=== PATIENT | female | born 1995 | race Two or more races ===

== ENCOUNTER 2024-06-15 09:30 | Emergency (ER) | payer MEDICAID ==
[~2024-06-15] VITALS: Ht 149.9 cm; Wt 56.2 kg
[2024-06-15 09:52] VITALS: BP 146/96; PULSE 96; RESP 16; TEMP 98.6; O2SAT 96
--- NOTE | 2024-06-15 10:29 | ED.PDOC ---
HPI Comments A 29 YEAR OLD FEMALE PRESENTS TO THE ED WITH COMPLAINT OF DOG BITE. PATIENT REPORTS THAT SHE WAS GRABBING HER BOYFRIEND'S SPANISH BULLDOG TO TAKE HIM TO THE VET TODAY WHEN ALL OF A SUDDEN, THE DOG TURNED AROUND AND BIT HER ON THE LEFT FIFTH FINGER, CAUSING A LACERATION. PATIENT RELAYS THAT SHE CONTROLLED THE BLEEDING WITH WRAPPING AND SHE IS STILL ABLE TO MOVE HER FINGER NORMALLY. PATIENT STATES SHE IS UNSURE IF THE DOG IS VACCINATED AND NEITHER IS HER BOYFRIEND SURE. PATIENT DENIES ANY NUMBNESS, WEAKNESS, UNCONTROLLED BLEEDING, OR OTHER COMPLAINTS. NO OTHER SYMPTOMS OR MODIFYING FACTORS AT THIS TIME. Chief Complaint: Animal Bite Time Seen by MD: 10:24 Reviewed Notes: Nurses Notes, Medications, Allergies Home Meds Active Scripts Naproxen (Naproxen) 500 Mg Tab, 500 MG PO BID, #30 TAB Prov:REGINE SINGH 06/15/24 Amoxicillin & Pot Clavulanate (Augmentin) 500 Mg Tab, 1 TAB PO BID, #14 TAB Prov:REGINE SINGH 06/15/24 Information Source: Patient Mode of Arrival: Ambulatory Severity: Moderate Severity of Laceration: Controlled Bleeding Complexity: Intermediate Timing: Hours Prehospital treatment: None Laceration Location: Digit #5 (LEFT) Mechanism: Dog Last Tetanus: > 5 Years, Unknown Laceration Length (cm): 4 Skin Type: Irregular Depth of Injury: SQ Tendon Injury: 0% Capillary Refill: < 3 seconds Tender: Moderate Discharge: Serosanguinous Erythema: Localized to Wound Edges Associated Signs and Symptoms: None Past Medical History PAST MEDICAL HISTORY: Denies Surgical History: Denies all surgeries METER CHANGES RECORDS CLERK History: No Pertinent METER CHANGES RECORDS CLERK History Family History Family History: Reviewed,noncontributory to illness Social History Smoker: Non-Smoker Alcohol: Denies ETOH Use Drugs: Denies Drug Use Lives In: Home Constitutional: denies: chills, diaphoresis, fatigue, fever, malaise, sweats, weakness, others EENTM: denies: blurred vision, double vision, ear bleeding, ear discharge, ear drainage, ear pain, ear ringing, eye pain, eye redness, hearing loss, mouth pain, mouth swelling, nasal discharge, nose bleeding, nose congestion, nose pain, photophobia, tearing, throat pain, throat swelling, voice changes, others Respiratory: denies: cough, hemoptysis, orthopnea, SOB at rest, shortness of breath, SOB with excertion, stridor, wheezing, others Cardiovascular: denies: chest pain, dizzy spells, diaphoresis, Dyspnea on exertion, edema, irregular heart beat, left arm pain, lightheadedness, palpitations, PND, syncope, others Gastrointestinal: denies: abdomen distended, abdominal pain, blood streaked bowels, constipated, diarrhea, dysphagia, difficulty swallowing, hematemesis, melena, nausea, poor appetite, poor fluid intake, rectal bleeding, rectal pain, vomiting, others Genitourinary: denies: abnormal vagina bleeding, burning, dyspareunia, dysuria, flank pain, frequency, hematuria, incontinence, pain, , vagina discharge, urgency, others Neurological: denies: dizziness, fainting, headache, left sided numbness, left sided weakness, numbness, paresthesia, pre-existing deficit, right sided numbness, right sided weakness, seizure, speech problems, tingling, tremors, weakness, others Musculoskeletal: denies: back pain, gout, joint pain, joint swelling, muscle pain, muscle stiffness, neck pain, others Integumetry: reports: laceration (TO TOP OF LEFT FIFTH FINGER); denies: bruises, change in color, change in hair/nails, dryness, lesions, lumps, rash, wounds, others Allergic/Immunocompromised: denies: Difficulty Healing, Frequent Infections, Hives, Itching, others Hematologic/Lymphatic: denies: anemia, blood clots, easy bleeding, easy bruising, swollen glands, others Endocrine: denies: excessive hunger, excessive sweating, excessive thirst, excessive urination, flushing, intolerance to cold, intolerance to heat, unexplained weight gain, unexplained weight loss, others Psychiatric: denies: anxiety, bipolar disorder, depression, hopeless, panic disorder, schizophrenia, sleepless, suicidal, others All Other Systems: Reviewed and Negative Physical Exam General Appearance: No Apparent Distress, Normal HEENT: Normal ENT Inspection, PERRL/EOMI Neck: Full Range of Motion, Non-Tender, Normal, Normal Inspection Respiratory: Chest Non-Tender, Lungs Clear, No Accessory Muscle Use, No Respiratory Distress, Normal Breath Sounds Cardiovascular: No Edema, No JVD, No Murmur, No Gallop, Normal Peripheral Pulses, Regular Rate/Rhythm Breast Exam: Deferred Gastrointestinal: No Organomegaly, Non Tender, No Pulsatile Mass, Normal Bowel Sounds, Soft Genitalia: Deferred Pelvic: Deferred Rectal: Deferred Extremities: No calf tenderness, Normal capillary refill, Normal range of motion, No pedal edema, Tender (WITH LACERATION ON LEFT 5TH PROXIMAL FINGER, NO BONY TENDERNESS AND SWELLING. ) Musculoskeletal : Apperance: Normal Neurologic: Alert, web content executive II-XII nml as Tested, No Motor Deficits, Normal Affect, Normal Mood, No Sensory Deficits Cerebellar Function: Normal Reflexes: Normal Skin: Dry, Lacerations (4CM LACERATION ON LEFT 5TH PROXIMAL FINGER, NO BLEEDING AND FB, NEUROVASCULAR INTACT, NORMAL ROM. ), Normal Color, Warm Peripheral Pulses: 2+ carotid (R), 2+ carotid (L), 2+ Radial (R), 2+ Radial (L) Lymphatic: No Adenopathy Was a procedure done? Was a procedure done?: Yes Sedation Sedation?: No Laceration Repair : Location TOP OF LEFT FIFTH FINGER Length 2 CM Anesthetic: Lidocaine Laceration Repair Prep: Saline, Betadine Laceration Repair Wound Comple: subcut tissue repair Laceration Repair: Number of sutures (8, 4-0 ETHILON SUTURES), SQ, Size (4- 0), Simple, Bacitracin, Gauze Informed consent obtained: No Risks, benefits, and alternati: Yes Images 1 - Differential diagnosis Generic Laceration: Laceration, Other (POST DOG BITE ) X-Ray, Labs, Meds, VS Vital Signs Date Time Temp Pulse Resp B/P (MAP) Pulse Ox O2 Delivery O2 Flow Rate FiO2 06/15/24 09:52 98.6 96 16 146/96 (113) 96 98.6 06/15/24 09:52 96 16 96 Room Air 06/15/24 09:38 98.2 96 20 144/94 (111) 98 Current Medications Medications (Trade) Dose Ordered Sig/Cal Route Start Time Stop Time Status Last Admin Diphtheria/ Tetanus/Acell Pertussis (Boostrix T-Dap) 0.5 ml ONCE ONCE IM 06/15/24 10:45 06/15/24 10:46 DC 06/15/24 10:45 X-Ray, Labs, Meds, VS Comment TREATMENT: TETANUS VACCINE LEFT FIFTH FINGER X RAY: INTERPRETED BY ME. NO ACUTE FINDINGS. NO FRACTURES OR DISLOCATION. PENDING RADIOLOGIST REPORT. Time of 1ST Reevaluation: 11:06 Reevaluation 1ST: Improved Patient Education/Counseling: Diagnosis, Treatment, Need For Follow Up Family Education/Counseling: Diagnosis, Treatment, Need For Follow Up, No Family Present Medical Screening: No EMC Exist At This Time Departure 1 Departure Time of Disposition: 11:06 Impression: Primary Impression: Laceration of left little finger Qualified Codes: S61.217A - Laceration without foreign body of left little finger without damage to nail, initial encounter Additional Impression: Dog bite Qualified Codes: W54.0XXA - Bitten by dog, initial encounter Disposition: HOME / SELF CARE / HOMELESS Condition: Stable Additional Instructions: FOLLOW-UP WITH PCP IN 1 TO 2 DAYS. TAKE MEDICATIONS PRESCRIBED. RETURN TO ED FOR ANY NEW OR WORSENING SYMPTOMS. e-Prescriptions Naproxen (Naproxen) 500 Mg Tab 500 MG PO BID, #30 TAB Prov: REGINE SINGH 06/15/24 Amoxicillin & Pot Clavulanate (Augmentin) 500 Mg Tab 1 TAB PO BID, #14 TAB Prov: REGINE SINGH 06/15/24 Discharged With: Self Critical Care Note Critical Care Time?: No Stability Stability form required: No Heart Score Heart Score: Heart Score Response (Comments) Value History N/A 0 EKG N/A 0 Age N/A 0 Risk Factors N/A 0 Troponin N/A 0 Total 0 I personally scribed for REGINE SINGH ([email or web address]) on 06/15/24 at 10:29. Electronically submitted by David Rice ([email or web address]). I personally scribed for REGINE SINGH ([email or web address]) on 06/15/24 at 10:36. Electronically submitted by David Rice ([email or web address]). I personally scribed for REGINE SINGH ([email or web address]) on 06/15/24 at 10:59. Electronically submitted by David Rice ([email or web address]). REGINE SINGH Jun 15, 2024 10:29
[2024-06-15] MEDS: LIDOCAINE 1% HCL (LOCAL ANESTH.) INJ 20ML MDV IJ ONE (10:33)
[2024-06-15] MEDS: TETANUS-DIPTH-ACEL PERTUSSIS 0.5ML SYR Tdap IM ONE (10:45)
[2024-06-15] MEDS ORDERED: AMOX500T86 PO (11:03)
[2024-06-15] MEDS ORDERED: NAPR-746 PO (11:03)
--- NOTE | 2024-06-15 11:14 | DVH ---
Left 5th digit radiograph CLINICAL INDICATION: LACERATION POST DOG BITE TECHNIQUE: 3 radiographic views of the left 5th digit were obtained. Comparison: None FINDINGS: There is no evidence of acute fracture or dislocation. The visualized joint space is well maintained. The alignment is anatomical. Soft tissues are unremarkable. IMPRESSION: No acute fracture or dislocation. Diffuse soft tissue swelling.
== END 2024-06-15 11:06 | disposition home or self-care (01) ==
LOC: ER 09:30
DX: S61.217A Laceration without foreign body of left little finger without damage to nail, initial encounter (principal); Z79.899 Other long term (current) drug therapy; W54.0XXA Bitten by dog, initial encounter; Y93.89 Activity, other specified; Y92.89 Other specified places as the place of occurrence of the external cause; Y99.8 Other external cause status
CPT/HCPCS: 12002; 73140; 90471; 90715

== ENCOUNTER 2024-06-19 19:19 | Emergency (ER) | payer MEDICAID ==
[~2024-06-19] VITALS: Ht 149.9 cm; Wt 58.0 kg
[~2024-06-19 19:19] MED LIST: AMOX500T86 PO; NAPR-746 PO
[2024-06-19] MEDS ORDERED: CLIN1CAP70 PO (20:57)
--- NOTE | 2024-06-19 20:57 | ED.PDOC ---
History of Present Illness(SKN HPI Comments 29-year-old female complaining of pain and swelling to left hand 5th digit. Patient states she was bit by a dog last week. She was seen at this ER. Had sutures placed in the left hand 5th digit. Says she was started on antibiotics and today when she was cleaning her wound she noticed pus coming out of her wound. Denies any fever or chills. States the finger is painful. Chief Complaint: Wound Check Time Seen by MD: 19:40 History of Present Illness: Nurses Notes Allergies: Coded Allergies: NO KNOWN ALLERGIES (Unverified , 06/19/24) Home Meds Active Scripts Naproxen (Naproxen) 500 Mg Tab, 500 MG PO BID, #30 TAB Prov:REGINE SINGH 06/15/24 Amoxicillin & Pot Clavulanate (Augmentin) 500 Mg Tab, 1 TAB PO BID, #14 TAB Prov:REGINE SINGH 06/15/24 Information Source: Patient Mode of Arrival: Ambulatory Past Medical History PAST MEDICAL HISTORY: Denies Surgical History: Denies all surgeries PARACHUTE CUSHION INSTALLER History: No Pertinent PARACHUTE CUSHION INSTALLER History Family History Family History: Reviewed,noncontributory to illness Social History Smoker: Non-Smoker Alcohol: Denies ETOH Use Drugs: Denies Drug Use Lives In: Home Constitutional: denies: chills, diaphoresis, fatigue, fever, malaise, sweats, weakness, others EENTM: denies: blurred vision, double vision, ear bleeding, ear discharge, ear drainage, ear pain, ear ringing, eye pain, eye redness, hearing loss, mouth pain, mouth swelling, nasal discharge, nose bleeding, nose congestion, nose pain, photophobia, tearing, throat pain, throat swelling, voice changes, others Respiratory: denies: cough, hemoptysis, orthopnea, SOB at rest, shortness of breath, SOB with excertion, stridor, wheezing, others Cardiovascular: denies: chest pain, dizzy spells, diaphoresis, Dyspnea on exertion, edema, irregular heart beat, left arm pain, lightheadedness, palpitations, PND, syncope, others Gastrointestinal: denies: abdomen distended, abdominal pain, blood streaked bowels, constipated, diarrhea, dysphagia, difficulty swallowing, hematemesis, melena, nausea, poor appetite, poor fluid intake, rectal bleeding, rectal pain, vomiting, others Genitourinary: denies: abnormal vagina bleeding, burning, dyspareunia, dysuria, flank pain, frequency, hematuria, incontinence, pain, , vagina discharge, urgency, others Neurological: denies: dizziness, fainting, headache, left sided numbness, left sided weakness, numbness, paresthesia, pre-existing deficit, right sided numbness, right sided weakness, seizure, speech problems, tingling, tremors, weakness, others Musculoskeletal: denies: back pain, gout, joint pain, joint swelling, muscle pain, muscle stiffness, neck pain, others Integumetry: reports: wounds; denies: bruises, change in color, change in hair/nails, dryness, laceration, lesions, lumps, rash, others Allergic/Immunocompromised: denies: Difficulty Healing, Frequent Infections, Hives, Itching, others Hematologic/Lymphatic: denies: anemia, blood clots, easy bleeding, easy bruising, swollen glands, others Physical Exam General Appearance: No Apparent Distress, Normal HEENT: Normal ENT Inspection, Pharynx Normal, TMs Normal Neck: Full Range of Motion, Non-Tender, Normal, Normal Inspection Respiratory: Chest Non-Tender, Lungs Clear, No Accessory Muscle Use, No Respiratory Distress, Normal Breath Sounds Cardiovascular: No Edema, No JVD, No Murmur, No Gallop, Normal Peripheral Pulses, Regular Rate/Rhythm Breast Exam: Deferred Gastrointestinal: No Organomegaly, Non Tender, No Pulsatile Mass, Normal Bowel Sounds, Soft Genitalia: Deferred Pelvic: Deferred Rectal: Deferred Extremities: No calf tenderness, Normal capillary refill, Normal inspection, Normal range of motion, Non-tender, No pedal edema Musculoskeletal : Apperance: Normal Neurologic: Alert, sap director II-XII nml as Tested, No Motor Deficits, Normal Affect, Normal Mood, No Sensory Deficits Cerebellar Function: Normal Reflexes: Normal Skin: Dry, Normal Color, Warm, Wounds (Wound to the left hand 5th digit over the PIP joint positive swelling, sutures are intact, there is weeping serosanguineous fluid from the suture line. No streaking restorationist into the hand.) Lymphatic: No Adenopathy Was a procedure done? Was a procedure done?: No Differential Diagnosis (INTG) Differential Diagnosis: Cellulitis X-Ray, Labs, Meds, VS Vital Signs Date Time Temp Pulse Resp B/P (MAP) Pulse Ox O2 Delivery O2 Flow Rate FiO2 06/19/24 19:51 98.2 94 16 136/95 (109) 99 X-Ray, Labs, Meds, VS Comment Imaging: X-rays and CT scans were reviewed and interpreted by this provider, imaging shows no fractures and no pathological disease. Pending radiology review. Laboratory: Labs reviewed and interpreted by this provider. No significant abnormalities noted. Patient has prior medical visits reviewed. Med reconciliation performed Vital signs reviewed Time of 1ST Reevaluation: 20:57 Reevaluation 1ST: Improved Patient Education/Counseling: Diagnosis, Treatment, Need For Follow Up (Patient advised to follow-up in the emergency room in the next 24 to 48 hours if symptoms do not improve. Advised follow-up with PCP in the next 3 to 5 days. Patient verbalized understanding. ) Family Education/Counseling: Diagnosis Departure 1 Departure Time of Disposition: 20:54 Impression: Primary Impression: Dog bite Qualified Codes: W54.0XXD - Bitten by dog, subsequent encounter Additional Impression: Cellulitis Qualified Codes: L03.012 - Cellulitis of left finger Disposition: 01 HOME / SELF CARE / HOMELESS Condition: Fair e-Prescriptions Clindamycin Hcl (Clindamycin Hcl) 300 Mg Cap 300 MG PO QID for 10 Days, #40 CAP Prov: JIMY HAIRSTON 06/19/24 Discharged With: Self Critical Care Note Critical Care Time?: No Stability Stability form required: No Heart Score Heart Score: Heart Score Response (Comments) Value History N/A 0 EKG N/A 0 Age N/A 0 Risk Factors N/A 0 Troponin N/A 0 Total 0 JIMY HAIRSTON Jun 19, 2024 20:57
[2024-06-19 21:06] VITALS: BP 123/81; PULSE 87; RESP 12; TEMP 98.6; O2SAT 100
[2024-06-19] MEDS: cefTRIAXone SOD 1,000 MG VL IM ONE (21:13)
== END 2024-06-19 21:23 | disposition home or self-care (01) ==
LOC: ER 19:19
DX: L03.012 Cellulitis of left finger (principal); Z79.899 Other long term (current) drug therapy; W54.0XXD Bitten by dog, subsequent encounter
CPT/HCPCS: 96372; 99283; J0696